=== PATIENT | female | born 1950 | race Caucasian/White ===

== ENCOUNTER 2016-07-18 10:15 | Emergency (ER) | payer MEDICARE, OTHER ==
--- NOTE | 2016-07-18 13:23 | ED ---
General Adult HPI - General Chief complaint: Anxiety Stated complaint: Anxiety Time Seen by Provider: 07/18/16 12:58 Source: patient, RN notes reviewed Mode of arrival: ambulatory Limitations: no limitations - History of Present Illness Initial comments: Patient is a 66-year-old female who presents emergency room today with chief complaint of increased anxiety. 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 Patient admits that she's had increased anxiety since the of her mother which is approximately a year ago. She states she just feels "overwhelmed". States she's never talked with therapist Rakesh about these feelings. States not part of the family doctor. Patient states she feels that her heart races at times. Denies any other complaints or symptoms. Patient denies any recent fever, chills, shortness of breath, chest pain, back pain, abdominal pain, nausea or vomiting, numbness or tingling, dysuria or hematuria, constipation or diarrhea, headaches or visual changes, or any other complaints. - Related Data Home Medications Medication Instructions Recorded Confirmed Famotidine [Pepcid] 20 mg PO DAILY 07/06/14 07/18/16 Hydrochlorothiazide [Hydrodiuril] 12.5 mg PO DAILY 07/06/14 07/18/16 Lisinopril [Prinivil] 5 mg PO DAILY 07/06/14 07/18/16 Multivitamins, Thera [Theragran] 1 tab PO DAILY 07/06/14 07/18/16 Fish Oil/Dha/Epa [Fish Oil 1,200 1 cap PO DAILY 07/18/16 07/18/16 mg Fish Oil] Allergies Allergy/AdvReac Type Severity Reaction Status Date / Time morphine AdvReac Nausea & Verified 07/18/16 12:27 Vomiting Review of Systems ROS Statement: Those systems with pertinent positive or pertinent negative responses have been documented in the HPI. ROS Other: All systems not noted in ROS Statement are negative. Past Medical History Past Medical History: GERD/Reflux, Hypertension Additional Past Medical History / Comment(s): ann carpal tunnel History of Any Multi-Drug Resistant Organisms: None Reported Past Surgical History: Adenoidectomy, Section, Cholecystectomy, Hysterectomy, Joint Replacement, Tonsillectomy Additional Past Surgical History / Comment(s): b\\l knee replacement. c-sect x 3 Past Anesthesia/Blood Transfusion Reactions: Postoperative Nausea & Vomiting ( PONV) Past Psychological History: Anxiety Smoking Status: Never smoker Past Alcohol Use History: None Reported Past Drug Use History: None Reported - Past Family History Sister(s) Family Medical History: Cancer Father Family Medical History: Cancer General Exam - General Exam Comments Initial Comments: General: The patient is awake and alert, in no distress, and does not appear acutely ill. Eye: Pupils are equal, round and reactive to light, extra-ocular movements are intact. No nystagmus. There is normal conjunctiva bilaterally. No signs of icterus. Ears, nose, mouth and throat: There are moist mucous membranes and no oral lesions. Neck: The neck is supple, there is no tenderness or JVD. Cardiovascular: There is a regular rate and rhythm. No murmur, rub or gallop is appreciated. Respiratory: Lungs are clear to auscultation, respirations are non-labored, breath sounds are equal. No wheezes, stridor, rales, or rhonchi. Gastrointestinal: Soft, non-distended, non-tender abdomen without masses or organomegaly noted. There is no rebound or guarding present. No CVA tenderness. Bowel sounds are unremarkable. Musculoskeletal: Normal ROM, no tenderness. Strength 5/5. Sensation intact. Pulses equal bilaterally 2+. Neurological: A&O x 3. CN II-XII intact, There are no obvious motor or sensory deficits. Coordination appears grossly intact. Speech is normal. Skin: Skin is warm and dry and no rashes or lesions are noted. Psychiatric: Cooperative, appropriate mood & affect, normal judgment. Limitations: no limitations Course Vital Signs 07/18/16 11:05 Temperature 97.9 F Pulse Rate 100 Respiratory 16 Rate Blood Pressure 132/82 O2 Sat by Pulse 96 Oximetry EKG Findings - EKG Comments: EKG Findings:: EKG performed at 1356: A 12-lead EKG was performed and interpreted by me as showing the following: Rate is 95, and rhythm is normal sinus. There are normal QRS complexes and normal R-wave progression. ST segments have no elevation or depression, and IL segments appear normal. Medical Decision Making - Medical Decision Making Patient examined here the emergency room by [email or web address]. The recommendation that patient can follow up outpatient. Patient given information. States understanding and is in agreement with this plan. - Lab Data Result diagrams: 07/18/16 13:40 07/18/16 13:40 Lab Results 07/18/16 07/18/16 07/18/16 Range/Units 13:40 13:40 14:39 WBC 9.3 (3.8-10.6) k/uL RBC 5.01 (3.80-5.40) m/uL Hgb 15.5 (11.4-16.0) gm/dL Hct 46.0 (34.0-46.0) % MCV 91.7 (80.0-100.0) fL MCH 30.9 (25.0-35.0) pg MCHC 33.7 (31.0-37.0) g/dL RDW 13.0 (11.5-15.5) % Plt Count 304 (150-450) k/uL Neutrophils % 66 % Lymphocytes % 27 % Monocytes % 4 % Eosinophils % 1 % Basophils % 0 % Neutrophils # 6.1 (1.3-7.7) k/uL Lymphocytes # 2.5 (1.0-4.8) k/uL Monocytes # 0.4 (0-1.0) k/uL Eosinophils # 0.1 (0-0.7) k/uL Basophils # 0.0 (0-0.2) k/uL Sodium 141 (137-145) mmol/L Potassium 4.2 (3.5-5.1) mmol/L Chloride 103 (98-107) mmol/L Carbon Dioxide 27 (22-30) mmol/L Anion Gap 11 mmol/L BUN 14 (7-17) mg/dL Creatinine 0.67 (0.52-1.04) mg/dL Est GFR (MDRD) Af Amer >60 (>60 ml/min/1.73 sqM) Est GFR (MDRD) Non-Af >60 (>60 ml/min/1.73 sqM) Glucose 100 H (74-99) mg/dL Calcium 10.1 (8.4-10.2) mg/dL Total Bilirubin 1.6 H (0.2-1.3) mg/dL AST 25 (14-36) U/L ALT 26 (9-52) U/L Alkaline Phosphatase 68 (38-126) U/L Total Protein 8.4 H (6.3-8.2) g/dL Albumin 4.7 (3.5-5.0) g/dL Urine Color Light Yellow Urine Appearance Clear (Clear) Urine pH 5.5 (5.0-8.0) Ur Specific [place] 1.006 (1.001-1.035) Urine Protein Negative (Negative) Urine Glucose (UA) Negative (Negative) Urine Ketones Trace H (Negative) Urine Blood Negative (Negative) Urine Nitrite Negative (Negative) Urine Bilirubin Negative (Negative) Urine Urobilinogen <2.0 (<2.0) mg/dL Ur Leukocyte Esterase Trace H (Negative) Urine WBC 3 (0-5) /hpf Ur Squamous Epith Cells 1 (0-4) /hpf Amorphous Sediment Rare H (None) /hpf Urine Mucus Rare H (None) /hpf Urine Opiates Screen Not Detected (NotDetected) Ur Oxycodone Screen Not Detected (NotDetected) Urine Methadone Screen Not Detected (NotDetected) Ur Propoxyphene Screen Not Detected (NotDetected) Ur Barbiturates Screen Not Detected (NotDetected) U Tricyclic Antidepress Not Detected (NotDetected) Ur Phencyclidine Scrn Not Detected (NotDetected) Ur Amphetamines Screen Not Detected (NotDetected) U Methamphetamines Scrn Not Detected (NotDetected) U Benzodiazepines Scrn Not Detected (NotDetected) Urine Cocaine Screen Not Detected (NotDetected) U Marijuana (THC) Screen Not Detected (NotDetected) Disposition Clinical Impression: Anxiety Disposition: HOME SELF-CARE Condition: Good Instructions: Generalized Anxiety Disorder (ED) Additional Instructions: Please follow up with family doctor and outpatient therapy as discussed. Please return to the ER if any symptoms increase or worsen or for any other concerns. Time of Disposition: 18:01
[2016-07-18 13:58] LABS: Basophils % (A) 0 %; CHCM 32.9; Eosinophils # (A) 0.1 k/uL (0-0.7); Eosinophils % (A) 1 %; HGB 15.5 gm/dL (11.4-16.0); Luc # (Auto) 0.21; Luc % (Auto) 2; Lymphocytes # (A) 2.5 k/uL (1.0-4.8); Lymphocytes % (A) 27 %; MCH 30.9 pg (25.0-35.0); MCHC 33.7 g/dL (31.0-37.0); MCV 91.7 fL (80.0-100.0); Mean Platelet Volume 6.8; Monocytes # (A) 0.4 k/uL (0-1.0); Monocytes % (A) 4 %; Neutrophils # (A) 6.1 k/uL (1.3-7.7); Neutrophils % (A) 66 %; RBC 5.01 m/uL (3.80-5.40); WBC 9.3 k/uL (3.8-10.6); WBC (Perox) 9.26
[2016-07-18 14:13] LABS: ALT 26 U/L (9-52); AST 25 U/L (14-36); Alkaline Phosphatase 68 U/L (38-126); Anion Gap 11 mmol/L; Blood Urea Nitrogen 14 mg/dL (7-17); Calcium 10.1 mg/dL (8.4-10.2); Carbon Dioxide 27 mmol/L (22-30); Chloride 103 mmol/L (98-107); Glucose 100 mg/dL (74-99); Non-African American GFR(MDRD) >60 (>60 ml/min/1.73 sqM); Potassium 4.2 mmol/L (3.5-5.1); Sodium 141 mmol/L (137-145); Total Bilirubin 1.6 mg/dL (0.2-1.3); Total Protein 8.4 g/dL (6.3-8.2)
[2016-07-18 14:56] LABS: Amorphous Sediment,Urine Rare /hpf; Appearance,Urine Clear (Clear); Bilirubin,Urine Negative (Negative); Glucose,Urine (UA) Negative (Negative); Ketones,Urine Trace (Negative); Leukocyte Esterase,Urine Trace (Negative); Mucus,Urine Rare /hpf; Nitrite,Urine Negative (Negative); PH, Urine 5.5 (5.0-8.0); Particle Count 845; Protein,Urine Negative (Negative); Specific Gravity,Urine 1.006 (1.001-1.035); Squamous Epithelial Cell,Urine 1 /hpf (0-4); UA Billing (MACRO vs. MICRO) MICRO; Urobilinogen,Urine <2.0 mg/dL (<2.0); WBC,Urine 3 /hpf (0-5)
[2016-07-18 18:15] VITALS: BP 147/87; PULSE 107; RESP 18; TEMP 98.2
== END 2016-07-18 18:15 | disposition home or self-care (01) ==
LOC: EC 10:15
DX: F41.9 Anxiety disorder, unspecified (principal); I10 Essential (primary) hypertension; K21.9 Gastro-esophageal reflux disease without esophagitis; Z96.653 Presence of artificial knee joint, bilateral; Z79.899 Other long term (current) drug therapy; Z88.5 Allergy status to narcotic agent
CPT/HCPCS: 36415; 80053; 80306; 81001; 85025; 87086; 93005; 99284

== ENCOUNTER 2021-04-28 23:54 | Emergency (ER) | payer MEDICARE, OTHER ==
[2021-04-29 01:22] LABS: Appearance,Urine Cloudy (Clear); Bacteria,Urine Rare /hpf; Bilirubin,Urine Negative (Negative); Blood,Urine Large (Negative); Calcium Oxalate Crystals,Urine Occasional /hpf; Color,Urine Yellow; Glucose,Urine (UA) Negative (Negative); Hyaline Casts,Urine 13 /lpf (0-2); Ketones,Urine Trace (Negative); Leukocyte Esterase,Urine Moderate (Negative); Mucus,Urine Few /hpf; Nitrite,Urine Negative (Negative); PH, Urine 5.5 (5.0-8.0); Protein,Urine 1+ (Negative); RBC,Urine 64 /hpf (0-5); Squamous Epithelial Cell,Urine 2 /hpf (0-4); WBC,Urine 28 /hpf (0-5)
--- NOTE | 2021-04-29 03:30 | CT ---
EXAM: CT Lumbar Spine Without Intravenous Contrast CLINICAL HISTORY: ITS.REASON CT Reason: back pain TECHNIQUE: Axial computed tomography images of the lumbar spine without intravenous contrast. CTDI is 82.684 mGy and DLP is 2974.4 mGy-cm. This CT exam was performed using one or more of the following dose reduction techniques: automated exposure control, adjustment of the mA and/or kV according to patient size, and/or use of iterative reconstruction technique. COMPARISON: No relevant prior studies available. FINDINGS: Moderate bilateral sacroiliac joint arthropathy. Vertebrae: There is a chronic lytic spondylolisthesis of L5-S1. No acute fracture. Discs/spinal canal/neural foramina: There is a moderately severe bilateral L5-S1 neuroforaminal stenosis with impingement of the L5 neural roots and ganglia. There is moderate disc degeneration at L2-3 and advanced disc degeneration at L5-S1. No acute findings. No spinal canal stenosis. Soft tissues: Unremarkable. IMPRESSION: No evidence of acute lumbar spine pathology. Chronic lytic spondylolisthesis of L5 on S1 with moderately severe bilateral neuroforaminal stenosis with impingement of the L5 nerve roots and ganglia. Moderate bilateral sacroiliac joint arthropathy.
[2021-04-29] MEDS ORDERED: SULFAMETHOX-TMP 800-160MG 1 EACH TAB PO STA (03:45)
--- NOTE | 2021-04-29 03:48 | ED ---
General Adult HPI - General Chief complaint: Abdominal Pain Stated complaint: LT flank pain, back pain Time Seen by Provider: 04/29/21 00:36 Source: patient Mode of arrival: wheelchair - History of Present Illness Initial comments: This patient is 70-year-old woman who presents with back pain that appears to have 2 components. There is a long-standing chronic back pain issue on the left lumbar. There is a component of flank pain going on for the past couple of days. Patient denies loss of bladder or bowel function. No saddle anesthesia. No weakness or numbness of the extremities. Onset/Timin -: days(s) Location: back, left Radiation: flank Quality: aching Consistency: constant Improves with: none Worsens with: none Associated Symptoms: denies other symptoms Treatments Prior to Arrival: none - Related Data Home Medications Medication Instructions Recorded Confirmed Famotidine [Pepcid] 20 mg PO DAILY 07/06/14 07/18/16 Lisinopril [Prinivil] 5 mg PO DAILY 07/06/14 07/18/16 Multivitamins, Thera [Theragran] 1 tab PO DAILY 07/06/14 07/18/16 hydroCHLOROthiazide [Hydrodiuril] 12.5 mg PO DAILY 07/06/14 07/18/16 Fish Oil/Dha/Epa [Fish Oil 1,200 1 cap PO DAILY 07/18/16 07/18/16 mg Fish Oil] Previous Rx's Medication Instructions Recorded Sulfamethox-Tmp 800-160Mg [Bactrim 1 each PO Q12HR #6 tab 04/29/21 Ds] traMADol HCl [Ultram] 50 mg PO Q6H PRN #20 tab 04/29/21 Allergies Allergy/AdvReac Type Severity Reaction Status Date / Time morphine AdvReac Nausea & Verified 04/29/21 00:00 Vomiting Review of Systems ROS Statement: Those systems with pertinent positive or pertinent negative responses have been documented in the HPI. ROS Other: All systems not noted in ROS Statement are negative. Constitutional: Denies: fever, chills Respiratory: Denies: cough, dyspnea Cardiovascular: Denies: chest pain, palpitations Gastrointestinal: Denies: abdominal pain, vomiting, diarrhea, constipation Genitourinary: Reports: frequency. Denies: dysuria, hematuria Musculoskeletal: Reports: as per HPI, back pain Skin: Denies: rash Neurological: Denies: headache, weakness Past Medical History Past Medical History: GERD/Reflux, Hypertension Additional Past Medical History / Comment(s): ann carpal tunnel History of Any Multi-Drug Resistant Organisms: None Reported Past Surgical History: Adenoidectomy, Section, Cholecystectomy, Hysterectomy, Joint Replacement, Tonsillectomy Additional Past Surgical History / Comment(s): b\l knee replacement. c-sect x 3 Past Anesthesia/Blood Transfusion Reactions: Postoperative Nausea & Vomiting (PONV) Past Psychological History: Anxiety Smoking Status: Never smoker Past Alcohol Use History: None Reported Past Drug Use History: None Reported - Past Family History Sister(s) Family Medical History: Cancer Father Family Medical History: Cancer General Exam General appearance: alert, in no apparent distress Head exam: Present: atraumatic, normocephalic Eye exam: Present: normal appearance. Absent: scleral icterus, conjunctival injection Neck exam: Present: normal inspection Respiratory exam: Present: normal lung sounds bilaterally. Absent: respiratory distress, wheezes, rales, rhonchi, stridor Cardiovascular Exam: Present: regular rate, normal rhythm, normal heart sounds. Absent: systolic murmur, diastolic murmur, rubs, gallop GI/Abdominal exam: Present: soft. Absent: distended, tenderness, guarding, rebound, rigid, mass Extremities exam: Present: normal inspection, normal capillary refill. Absent: pedal edema, calf tenderness Back exam: Present: normal inspection. Absent: CVA tenderness (R), CVA tenderness (L) Neurological exam: Present: alert Skin exam: Present: warm, dry, intact, normal color. Absent: rash Course Vital Signs 04/28/21 04/29/21 23:57 04:15 Temperature 97.9 F 97.6 F Pulse Rate 119 H 78 Respiratory 23 18 Rate Blood Pressure 189/88 181/100 O2 Sat by Pulse 98 96 Oximetry Medical Decision Making - Medical Decision Making Patient is 70-year-old woman with some chronic back pain and then superimposed urinary tract infection. Discussed appropriate further care and follow-up, course of antibiotics, return parameters. - Lab Data Lab Results 04/29/21 Range/Units 00:49 Urine Color Yellow Urine Appearance Cloudy H (Clear) Urine pH 5.5 (5.0-8.0) Ur Specific [place] 1.040 H (1.001-1.035) Urine Protein 1+ H (Negative) Urine Glucose (UA) Negative (Negative) Urine Ketones Trace H (Negative) Urine Blood Large H (Negative) Urine Nitrite Negative (Negative) Urine Bilirubin Negative (Negative) Urine Urobilinogen 2.0 (<2.0) mg/dL Ur Leukocyte Esterase Moderate H (Negative) Urine RBC 64 H (0-5) /hpf Urine WBC 28 H (0-5) /hpf Urine WBC Clumps Rare H (None) /hpf Ur Squamous Epith Cells 2 (0-4) /hpf Calcium Oxalate Crystal Occasional H (None) /hpf Urine Bacteria Rare H (None) /hpf Hyaline Casts 13 H (0-2) /lpf Urine Mucus Few H (None) /hpf Disposition Clinical Impression: Back pain, Urinary tract infection Disposition: HOME SELF-CARE Condition: Good Prescriptions: Sulfamethox-Tmp 800-160Mg [Bactrim Ds] 1 each PO Q12HR #6 tab traMADol HCl [Ultram] 50 mg PO Q6H PRN #20 tab PRN Reason: Pain Is patient prescribed a controlled substance at d/c from ED?: Yes When asked, does pt state using other controlled substances?: No If prescribed controlled substance>3 days was MAPS reviewed?: Prescribed <3 Days If opioid is for acute pain is fill amount 7 days or less?: Yes If Rx opioid, was Start Talking consent form obtained?: Yes Referrals: Pita Jc MD [Primary Care Provider] - 1-2 days Kary Moseley DO [Doctor of Osteopathic Medicine] - 1-2 days
[2021-04-29 05:16] VITALS: BP 181/100; PULSE 78; RESP 18; TEMP 97.6
== END 2021-04-29 04:15 | disposition home or self-care (01) ==
LOC: EC 23:54
DX: N39.0 Urinary tract infection, site not specified (principal); M54.9 Dorsalgia, unspecified; I10 Essential (primary) hypertension; K21.9 Gastro-esophageal reflux disease without esophagitis; Z79.899 Other long term (current) drug therapy; Z88.5 Allergy status to narcotic agent
CPT/HCPCS: 72131; 81001; 99284

== ENCOUNTER 2023-03-23 18:10 | Inpatient (IN) | payer MEDICARE, OTHER ==
[2023-03-23] MEDS ORDERED: KETOROLAC 15 MG/ML 1 ML VIAL IVP STA (18:26)
--- NOTE | 2023-03-23 18:48 | ED ---
General Adult HPI - General Chief complaint: Back Pain/Injury Stated complaint: Back Pain Time Seen by Provider: 03/23/23 18:13 Source: patient, RN notes reviewed, old records reviewed Mode of arrival: EMS Limitations: no limitations - History of Present Illness Initial comments: 72-year-old female with acute on chronic low back pain. Patient has chronic low back pain and walks with a walker. She had a minor fall approximately one week ago which has worsened her normal back pain. She states she does have pain radiating into her right leg. Patient denies vomiting. Denies head or neck trauma with the fall. Denies any specific injury with the fall but does report worsening pain. - Related Data Home Medications Medication Instructions Recorded Confirmed Lisinopril [Prinivil] 5 mg PO DAILY 07/06/14 03/23/23 hydroCHLOROthiazide [Hydrodiuril] 12.5 mg PO DAILY 07/06/14 03/23/23 Diclofenac Sodium [Voltaren] 50 mg PO BID 03/23/23 03/23/23 Pantoprazole Sodium [Protonix] 40 mg PO DAILY 03/23/23 03/23/23 Allergies Allergy/AdvReac Type Severity Reaction Status Date / Time morphine AdvReac Nausea & Verified 03/23/23 21:07 Vomiting Review of Systems ROS Statement: Those systems with pertinent positive or pertinent negative responses have been documented in the HPI. ROS Other: All systems not noted in ROS Statement are negative. Past Medical History Past Medical History: GERD/Reflux, Hypertension Additional Past Medical History / Comment(s): ann carpal tunnel, chronic back pain. History of Any Multi-Drug Resistant Organisms: None Reported Past Surgical History: Adenoidectomy, Section, Cholecystectomy, Hysterectomy, Joint Replacement, Tonsillectomy Additional Past Surgical History / Comment(s): b\l knee replacement. c-sect x 3 Past Anesthesia/Blood Transfusion Reactions: Postoperative Nausea & Vomiting (PONV) Past Psychological History: Anxiety Smoking Status: Never smoker Past Alcohol Use History: None Reported Past Drug Use History: None Reported - Past Family History Sister(s) Family Medical History: Cancer Father Family Medical History: Cancer General Exam Limitations: no limitations General appearance: alert, in no apparent distress Head exam: Present: atraumatic, normocephalic Eye exam: Present: normal appearance, PERRL Neck exam: Present: normal inspection Respiratory exam: Present: normal lung sounds bilaterally. Absent: respiratory distress Cardiovascular Exam: Present: regular rate, normal rhythm GI/Abdominal exam: Present: soft. Absent: distended, tenderness Extremities exam: Present: normal inspection. Absent: pedal edema, joint swelling Back exam: Present: paraspinal tenderness, vertebral tenderness Neurological exam: Present: alert, oriented X3, CN II-XII intact Skin exam: Present: warm, dry, intact Course Vital Signs 03/23/23 03/23/23 18:13 19:40 Temperature 98.3 F Pulse Rate 115 H 100 Respiratory 20 18 Rate Blood Pressure 146/96 121/73 O2 Sat by Pulse 94 L 95 Oximetry Medical Decision Making - Medical Decision Making Was pt. sent in by a medical professional or institution (, PA, FUEL MANAGEMENT HANDLER, urgent care, hospital, or snf...) When possible be specific @ -No Did you speak to anyone other than the patient for history (EMS, parent, family, police, friend...)? What history was obtained from this source @ -No Did you review nursing and triage notes (agree or disagree)? Why? @ -I reviewed and agree with nursing and triage notes Were old charts reviewed (outside hosp., previous admission, EMS record, old EKG, old radiological studies, urgent care reports/EKG's, snf records)? Report findings @ -No old charts were reviewed Differential Diagnosis (chest pain, altered mental status, abdominal pain women, abdominal pain men, vaginal bleeding, weakness, fever, dyspnea, syncope, headache, dizziness, GI bleed, back pain, seizure, CVA, palpatations, mental health, musculoskeletal)? @ -not applicable EKG interpreted by me (3pts min.). @ -As above X-rays interpreted by me (1pt min.). @X-ray of the lumbosacral spine performed, showing degenerative change without significant change compared to computed tomography scan in 2021. No acute fracture. CT interpreted by me (1pt min.). @ -None done U/S interpreted by me (1pt. min.). @ -None done What testing was considered but not performed or refused? (CT, X-rays, U/S, labs)? Why? @ -None What meds were considered but not given or refused? Why? @ -None Did you discuss the management of the patient with other professionals (professionals i.e. , PA, FUEL MANAGEMENT HANDLER, lab, RT, psych nurse, social work specialist, foot setter, teacher, contracts officer, case management manager)? Give summary @ -No Was smoking cessation discussed for >3mins.? @ -No Was critical care preformed (if so, how long)? @ -No Were there social determinants of health that impacted care today? How? (Homelessness, low income, unemployed, alcoholism, drug addiction, transportation, low edu. Level, literacy, decrease access to med. care, care home, rehab)? @ -No Was there de-escalation of care discussed even if they declined (Discuss DNR or withdrawal of care, Hospice)? DNR status @ -No What co-morbidities impacted this encounter? (DM, HTN, Smoking, COPD, CAD, Cancer, CVA, ARF, Chemo, Hep., AIDS, mental health diagnosis, sleep apnea, morbid obesity)? @ -None Was patient admitted / discharged? Hospital course, mention meds given and route, prescriptions, significant lab abnormalities, going to OR and other pertinent info. @72-year-old female with history of instability, chronic low back pain, worsening difficulty managing at home alone. X-rays are stable from prior. Patient currently lives alone and there is concern about her ability to remain alone due to difficulty ambulating and gait instability. She may benefit from physical therapy assessment and possible placement for rehabilitation. Undiagnosed new problem with uncertain prognosis? @ -No Drug Therapy requiring intensive monitoring for toxicity (Heparin, Nitro, Insulin, Cardizem)? @ -No Were any procedures done? @ -No Diagnosis/symptom? @ -Gait Instability, chronic pain Acute, or Chronic, or Acute on Chronic? @Acute on chronic Uncomplicated (without systemic symptoms) or Complicated (systemic symptoms)? @ -default Side effects of treatment? @ -No Exacerbation, Progression, or Severe Exacerbation? @ -No Poses a threat to life or bodily function? How? (Chest pain, [place], [place], pneumonia, PE, COPD, DKA, ARF, appy, cholecystitis, CVA, Diverticulitis, Homicidal, Suicidal, threat to staff... and all critical care pts) @ -Low risk at this time Disposition Clinical Impression: Lumbar radiculopathy, Gait instability, Difficulty in walking Disposition: ADMITTED IP TO THIS HOSP Condition: Stable Is patient prescribed a controlled substance at d/c from ED?: No Referrals: Demetrio Tenorio MD [Primary Care Provider] - 1-2 days Time of Disposition: 22:16
--- NOTE | 2023-03-23 19:19 | XR ---
EXAMINATION TYPE: XR lumbosacral spine min 4V DATE OF EXAM: 03/23/2023 6:53 PM CLINICAL INDICATION:Female, 72 years old with history of fall; H COMPARISON: CT lumbar spine 04/29/2021 TECHNIQUE: XR lumbosacral spine min 4V - frontal, lateral, bilateral oblique, coned-down lateral lumb osacral junction views. FINDINGS: Multilevel mild/moderate degenerative disc disease with severe degenerative disc disease L5-S1, under lying bilateral L5 pars defects and grade 2 anterolisthesis L5 on S1, similar to the prior. No eviden ce of acute compression fracture or traumatic malalignment. Mild/moderate facet arthropathy throughou t. Mild/moderate degenerative changes of the SI joints. Visualized pelvis appears intact. Clips in the right upper quadrant likely from cholecystectomy. Visualized bowel gas pattern is unrema rkable. IMPRESSION: 1. No radiographic evidence of acute lumbar compression fracture. 2. Multilevel degenerative disc disease, greatest at L5-S1 with bilateral L5 pars defects and grade 2 anterolisthesis L5 on S1, similar to previous.
[2023-03-23] MEDS ORDERED: NALOXONE 0.4 MG/ML 1 ML VIAL IV PRN (22:11)
[2023-03-23] MEDS ORDERED: HYDROcodone/APAP 5-325MG 1 EACH TAB PO PRN (22:11)
[2023-03-23 22:27] LABS: Basophils % (A) 0 %; Eosinophils # (A) 0.2 k/uL (0-0.7); Eosinophils % (A) 2 %; HCT 40.6 % (34.0-46.0); HGB 13.7 gm/dL (11.4-16.0); Lymphocytes # (A) 3.3 k/uL (1.0-4.8); Lymphocytes % (A) 36 %; MCH 31.1 pg (25.0-35.0); MCHC 33.7 g/dL (31.0-37.0); MCV 92.2 fL (80.0-100.0); Mean Platelet Volume 7.8; Monocytes # (A) 0.5 k/uL (0-1.0); Monocytes % (A) 6 %; Neutrophils # (A) 4.9 k/uL (1.3-7.7); Neutrophils % (A) 54 %; Platelet Count 298 k/uL (150-450); RDW 13.5 % (11.5-15.5); WBC 9.1 k/uL (3.8-10.6)
[2023-03-23 22:47] LABS: ALT 38 U/L (4-34); AST 37 U/L (14-36); African American GFR (CKD) >90 (>60 ml/min/1.73 sqM); Albumin 4.3 g/dL (3.5-5.0); Alkaline Phosphatase 87 U/L (38-126); Anion Gap 11 mmol/L; Blood Urea Nitrogen 16 mg/dL (7-17); Calcium 9.4 mg/dL (8.4-10.2); Carbon Dioxide 24 mmol/L (22-30); Chloride 99 mmol/L (98-107); Glucose 103 mg/dL (74-99); Non-African American GFR(CKD) 88 (>60 ml/min/1.73 sqM); Potassium 3.4 mmol/L (3.5-5.1); Sodium 134 mmol/L (137-145); Total Bilirubin 1.6 mg/dL (0.2-1.3); Total Protein 7.2 g/dL (6.3-8.2)
[2023-03-23] MEDS: KETOROLAC 15 MG/ML 1 ML VIAL IVP SCH (22:59)
[2023-03-24 05:21] LABS: Appearance,Urine Clear (Clear); Bilirubin,Urine Negative (Negative); Blood,Urine Trace (Negative); Color,Urine Light Yellow; Glucose,Urine (UA) Negative (Negative); Ketones,Urine Negative (Negative); Leukocyte Esterase,Urine Negative (Negative); Nitrite,Urine Negative (Negative); PH, Urine 5.5 (5.0-8.0); Protein,Urine Negative (Negative); RBC,Urine <1 /hpf (0-5); Specific Gravity,Urine 1.015 (1.001-1.035); Squamous Epithelial Cell,Urine <1 /hpf (0-4); Urobilinogen,Urine <2.0 mg/dL (<2.0); WBC,Urine <1 /hpf (0-5)
[2023-03-24] MEDS: KETOROLAC 15 MG/ML 1 ML VIAL IVP SCH ×3 (06:31→17:10)
[2023-03-24] MEDS: MAGNESIUM SULFATE-D5W PMX 1 GM in DEXTROSE/WATER 1 100ML.BAG IVPB SCH (15:03)
[2023-03-24] MEDS: PANTOPRAZOLE 40 MG TABLET PO SCH (15:04)
[2023-03-24] MEDS: HEPARIN SODIUM,PORCINE 5,000 UNIT/ML 1 ML VIAL SQ SCH (17:16)
[2023-03-24 19:54] LABS: ALT 35 U/L (8-44); AST 29 U/L (13-35); Albumin 4.1 g/dL (3.8-4.9); Albumin/Globulin Ratio 1.86 Ratio (1.60-3.17); Alkaline Phosphatase 80 U/L (41-126); BUN/Creat Ratio 15.67 Ratio (12.00-20.00); Blood Urea Nitrogen 14.1 mg/dL (9.0-27.0); Calcium 9.6 mg/dL (8.7-10.3); Carbon Dioxide 24.5 mmol/L (21.6-31.8); Chloride 99 mmol/L (96-109); Globulin 2.2 g/dL (1.6-3.3); Glucose 120 mg/dL (70-110); Potassium 3.7 mmol/L (3.5-5.5); Sodium 136 mmol/L (135-145); Total Bilirubin 1.5 mg/dL (0.3-1.2); Total Protein 6.3 g/dL (6.2-8.2)
[2023-03-25] MEDS: KETOROLAC 15 MG/ML 1 ML VIAL IVP SCH ×4 (00:50→17:15)
[2023-03-25] MEDS: HEPARIN SODIUM,PORCINE 5,000 UNIT/ML 1 ML VIAL SQ SCH ×3 (00:50→17:16)
[2023-03-25] MEDS ORDERED: ACETAMINOPHEN TAB 500 MG TAB PO PRN (00:57)
--- NOTE | 2023-03-25 01:00 | P.HPIM ---
History of Present Illness H&P Date: 03/24/23 Chief Complaint: Back pain Patient is a 73-year-old female with a past medical history of chronic low back pain, hypertension, GERD, anxiety and prior history of bilateral knee replacement presents to ER with complaints of low back pain and unable to ambulate. Patient usually walks with a walker. She has been having symptoms for the past 1 week after minor fall. She is currently living at [facility]. Patient was complaining of pain radiating down to her right lower extremity/leg. Denies any numbness or tingling. No bowel or bladder incontinence. Denies any head injury. No fever no chills. No cough or sputum production. No chest pain or shortness of breath. X-ray of the lumbar spine showed no radiographic evidence of acute lumbar compression fracture. Multilevel degenerative disc disease greatest at L5-S1 with bilateral L5 pars defects and grade 2 anterolisthesis L5-S1 similar to previous. Laboratory data showed sodium 134 potassium 3.4 chloride 99 bicarb is 24 BUN 16 and creatinine 0.67, blood sugar 103, bilirubin level 1.6 AST 37 ALT 38 and alk phos 87 and urinalysis is negative. Influenza A, B, RSV and COVID-19 PCR not detected. WBC 9.1 hemoglobin 13.7 platelets 298 Review of Systems Constitutional: Patient denies any fever or chills . no Generalized weakness. Abdomen: Patient denied any nausea or vomiting or abd. pain Cardiovascular: Patient denies any chest pain or short of breath no palpitations. Respiratory: patient denied any cough . no sputum production. No shortness of breath Neurologic: Patient denied any numbness or tingling or headache. Musculoskeletal: Patient denies any complaints of joint swelling or deformity. Low back pain. Skin: Negative Psychiatric: Negative Endocrine: No heat or cold intolerance. No recent weight gain. Genitourinary: No dysuria or hematuria. All other 14 point ROS negative except the above Past Medical History Past Medical History: GERD/Reflux, Hypertension Additional Past Medical History / Comment(s): ann carpal tunnel, chronic back pain. History of Any Multi-Drug Resistant Organisms: None Reported Past Surgical History: Adenoidectomy, Section, Cholecystectomy, Hysterectomy, Joint Replacement, Tonsillectomy Additional Past Surgical History / Comment(s): b\l knee replacement. c-sect x 3 Past Anesthesia/Blood Transfusion Reactions: Postoperative Nausea & Vomiting (PONV) Past Psychological History: Anxiety Smoking Status: Never smoker Past Alcohol Use History: None Reported Past Drug Use History: None Reported - Past Family History Sister(s) Family Medical History: Cancer Father Family Medical History: Cancer Medications and Allergies Home Medications Medication Instructions Recorded Confirmed Type Lisinopril [Prinivil] 5 mg PO DAILY 07/06/14 03/23/23 History hydroCHLOROthiazide [Hydrodiuril] 12.5 mg PO DAILY 07/06/14 03/23/23 History Diclofenac Sodium [Voltaren] 50 mg PO BID 03/23/23 03/23/23 History Pantoprazole Sodium [Protonix] 40 mg PO DAILY 03/23/23 03/23/23 History Allergies Allergy/AdvReac Type Severity Reaction Status Date / Time morphine AdvReac Nausea & Verified 03/23/23 21:07 Vomiting Physical Exam Vitals: Vital Signs Temp Pulse Pulse Resp BP BP Pulse Ox 03/24/23 12:02 97.9 F 95 18 114/74 94 L 03/24/23 07:13 97.5 F L 82 18 119/74 97 03/24/23 02:00 97.6 F 85 19 126/76 96 03/23/23 22:21 90 18 154/90 96 03/23/23 19:40 100 18 121/73 95 03/23/23 18:25 97.6 F 85 19 126/76 96 03/23/23 18:13 98.3 F 115 H 20 146/96 94 L Intake and Output 03/23/23 03/24/23 03/24/23 22:59 06:59 14:59 Intake Total 590 Balance 590 Intake: Oral 590 Other: Voiding Method External Catheter # Voids 1 1 Weight 136.985 kg 136.985 kg PHYSICAL EXAMINATION: Patient is lying in the bed comfortably, no acute distress, awake alert and oriented. Morbidly obese. HEENT: Normocephalic. Neck is supple. Pupils reactive. Nostrils clear. Oral cavity is moist. Neck reveals no JVD, carotid bruits, or thyromegaly. CHEST EXAMINATION: Trachea is central. Symmetrical expansion. Lung villalpando clear to auscultation and percussion. CARDIAC: Normal S1, S2 with no gallops. No murmurs ABDOMEN: Soft. Bowel sounds present. Nontender. No organomegaly. No abdominal bruits. Extremities: reveal no edema. No clubbing or cyanosis Neurologically awake, alert, oriented x3. Patient is able to move all extremities while in bed. No gross focal deficits noted Skin: No rash or skin lesions. Psychiatric: Coperative. Nonsuicidal, Musculoskeletal: No joint swelling or deformity. Results CBC & Chem 7: 03/23/23 22:19 03/24/23 14:24 Labs: Abnormal Lab Results - Last 24 Hours (Table) 03/23/23 03/24/23 Range/Units 22:19 04:45 Sodium 134 L (137-145) mmol/L Potassium 3.4 L (3.5-5.1) mmol/L Glucose 103 H (74-99) mg/dL Total Bilirubin 1.6 H (0.2-1.3) mg/dL AST 37 H (14-36) U/L ALT 38 H (4-34) U/L Urine Blood Trace H (Negative) Thrombosis Risk Factor Assmnt - DVT/VTE Prophylaxis DVT/VTE Prophylaxis: Pharmacologic Prophylaxis ordered - Choose All That Apply Any of the Below Risk Factors Present?: Yes Each Factor Represents 1 point: Obesity (BMI >25) Each Risk Factor Represents 2 Points: Age 61-74 years Other congenital or acquired thrombophilia - If yes, enter type in comment: No Thrombosis Risk Factor Assessment Total Risk Factor Score: 3 Thrombosis Risk Factor Assessment Level: Moderate Risk Assessment and Plan Assessment: Acute on chronic low back pain status post fall. Multilevel degenerative disc disease greatest at L5-S1 with bilateral L5 pars defects and grade 2 anterolisthesis L5-S1 similar to previous study. Hypokalemia Hypovolemic hyponatremia Mild transaminitis Hypertension GERD Morbid obesity BMI 51.8 Anxiety Prior history of bilateral knee replacement GI and DVT prophylaxis with heparin subcu and PPI Plan: Patient will be continued on pain management with Toradol and Tylenol as needed. Blood pressure medications on hold. Follow-up TSH, vitamin D levels. PT OT will be consulted. Patient may need rehab transfer. Continue to follow closely.
[2023-03-25 08:26] LABS: Basophils # (A) 0.03 X 10*3/uL (0.00-0.10); Basophils % (A) 0.4 %; Eosinophils # (A) 0.25 X 10*3/uL (0.04-0.35); Eosinophils % (A) 2.9 %; HCT 42.1 % (37.2-46.3); HGB 13.8 g/dL (12.0-15.0); Lymphocytes # (A) 3.24 X 10*3/uL (0.90-5.00); Lymphocytes % (A) 38.2 %; MCH 30.1 pg (27.0-32.0); MCHC 32.8 g/dL (32.0-37.0); MCV 91.7 FL (80.0-97.0); Monocytes # (A) 0.69 X 10*3/uL (0.20-1.00); Monocytes % (A) 8.1 %; NRBC Per 100 WBC 0 X 10*3/uL (0.00-0.01); Neutrophils # (A) 4.24 X 10*3/uL (1.80-7.70); Neutrophils % (A) 49.9 %; Platelet Count 309 X 10*3/uL (140-440); RBC 4.59 X 10*6/uL (4.10-5.20); RDW 13.6 % (11.5-14.5); WBC 8.49 X 10*3/uL (4.50-10.00)
[2023-03-25] MEDS: PANTOPRAZOLE 40 MG TABLET PO SCH (08:53)
[2023-03-25 09:23] LABS: BUN/Creat Ratio 18.89 Ratio (12.00-20.00); Calcium 9.6 mg/dL (8.7-10.3); Carbon Dioxide 23.5 mmol/L (21.6-31.8); Chloride 101 mmol/L (96-109); Glucose 113 mg/dL (70-110); Potassium 4.3 mmol/L (3.5-5.5); Sodium 138 mmol/L (135-145)
[2023-03-26] MEDS: KETOROLAC 15 MG/ML 1 ML VIAL IVP SCH ×5 (00:18→23:19)
[2023-03-26] MEDS: HEPARIN SODIUM,PORCINE 5,000 UNIT/ML 1 ML VIAL SQ SCH ×4 (00:18→23:20)
--- NOTE | 2023-03-26 05:45 | P.PN ---
Subjective Progress Note Date: 03/25/23 Patient is a 73-year-old female with a past medical history of chronic low back pain, hypertension, GERD, anxiety and prior history of bilateral knee replacement presents to ER with complaints of low back pain and unable to ambulate. Patient usually walks with a walker. She has been having symptoms fo r the past 1 week after minor fall. She is currently living at [facility]. Patient was complaining of pain radiating down to her right lower extremity/leg. Denies any numbness or tingling. No bowel or bladder incontinence. Denies any head injury. No fever no chills. No cough or sputum production. No chest pain or shortness of breath. X-ray of the lumbar spine showed no radiographic evidence of acute lumbar compression fracture. Multilevel degenerative disc disease greatest at L5-S1 with bilateral L5 pars defects and grade 2 anterolisthesis L5-S1 similar to previous. Laboratory data showed sodium 134 potassium 3.4 chloride 99 bicarb is 24 BUN 16 and creatinine 0.67, blood sugar 103, bilirubin level 1.6 AST 37 ALT 38 and alk phos 87 and urinalysis is negative. Influenza A, B, RSV and COVID-19 PCR not detected. WBC 9.1 hemoglobin 13.7 platelets 298 03/25/2023 Patient is seen and evaluated and follow-up continues to have lower back pain and difficulty with walking. Prior to admission patient was ambulatory and currently living alone and has been having recurrent falls with progressive weakness to the lower extremities. Imaging done of the lumbar spine with no evidence of fractures or dislocation. Patient does have significant degenerative disc disease and morbid obesity with a body mass index of 51.8. Patient being evaluated by physical therapy recommending rehab. Patient would benefit from aggressive PT/OT therapy at an [facility] for strength and mobility as patient was independent prior to these falls. Patient currently afebrile with no reports of chest pain or shortness of breath. Patient reports the tolerating diet and denies any nausea or vomiting Review of systems: Constitutional: No reports of fatigue, fever, or chills Cardiovascular: No reports of chest pain or palpitations Respiratory: No reports of shortness of breath or cough GI: No reports of nausea, vomiting, or diarrhea : No reports of dysuria or retention Neurovascular: reports of generalized weakness and difficulty ambulating All medications have been reviewed PHYSICAL EXAMINATION: Patient is sitting up in the chair, no acute distress, awake alert and oriented. Morbidly obese. HEENT: Normocephalic. Neck is supple. Pupils reactive. Nostrils clear. Oral cavity is moist. Neck reveals no JVD, carotid bruits, or thyromegaly. CHEST EXAMINATION: Trachea is central. Symmetrical expansion. Lung villalpando clear to auscultation and percussion. CARDIAC: Normal S1, S2 with no gallops. No murmurs ABDOMEN: Soft. Bowel sounds present. Nontender. No organomegaly. No abdominal bruits. Extremities: reveal no edema. No clubbing or cyanosis Neurologically awake, alert, oriented x3. Patient is able to move all extremities while in bed. No gross focal deficits noted Skin: No rash or skin lesions. Psychiatric: Cooperative. Non-suicidal, Musculoskeletal: No joint swelling or deformity. Diffusely weak Assessment: Acute on chronic low back pain status post fall. Frequent falls over the last month with progressive weakness Multilevel degenerative disc disease greatest at L5-S1 with bilateral L5 pars defects and grade 2 anterolisthesis L5-S1 similar to previous study. Hypokalemia, being replaced Hypovolemic hyponatremia Mild transaminitis Hypertension GERD Morbid obesity BMI 51.8 Anxiety Prior history of bilateral knee replacement GI and DVT prophylaxis with heparin subcu and PPI Full code Plan: Patient will be continued on pain management with Toradol and Tylenol as needed. Blood pressure medications on hold. As patient was currently hypotensive and will monitor closely and resume medications as appropriate PT/OT therapy evaluated the patient recommending rehab and patient is agreeable. Case management following working on insurance authorization as well as ECF According to Medicare guidelines, patient will require 3 nights hospitalization prior to discharge to ECF Will follow-up on repeat labs as a.m. labs are pending Encouraged increased activity as tolerated and recommended working with physical therapy daily Patient would benefit from ECF for more aggressive PT/OT therapy as patient has been having recurrent falls with progressive weakness of the lower extremities and was independent prior to these falls. Patient lives alone currently and feels is not a safe discharge to home. Strongly recommend ECF at this time. The impression and plan of care has been dictated by Stefanie Mclean, Nurse Practitioner as directed. Dr. Jose MD I have performed a history and examination and MDM of this patient, discussed the same with the dictator, and agree with the dictator's assessment and plan as written ,documented as a scribe. Based on total visit time, I have performed more than 50% of the visit. Objective - Vital Signs Vital signs: Vital Signs Temp 97.6 F 03/25/23 07:10 Pulse 88 03/25/23 07:10 Resp 18 03/25/23 07:10 BP 145/72 03/25/23 07:10 Pulse Ox 95 03/25/23 07:10 FiO2 Intake & Output 03/24/23 03/25/23 03/25/23 18:59 06:59 18:59 Intake Total 590 Output Total 375 250 Balance -375 340 Intake: Other 590 Output: Urine 375 250 Other: Voiding Method External Catheter External Catheter # Voids 1 2 1 # Bowel Movements 1 - Labs CBC & Chem 7: 03/25/23 05:44 03/25/23 05:44 Labs: Abnormal Lab Results - Last 24 Hours (Table) 03/24/23 03/25/23 Range/Units 14:24 05:44 Anion Gap 12.50 H 13.50 H (4.00-12.00) mmol/L Glucose 120 H 113 H (70-110) mg/dL Total Bilirubin 1.5 H (0.3-1.2) mg/dL Vitamin D 25-Hydroxy 25.8 L (30.0-100.0) ng/mL
[2023-03-26] MEDS: PANTOPRAZOLE 40 MG TABLET PO SCH (09:26)
[2023-03-27] MEDS: KETOROLAC 15 MG/ML 1 ML VIAL IVP SCH ×4 (05:03→23:06)
--- NOTE | 2023-03-27 06:45 | P.PN ---
Subjective Progress Note Date: 03/26/23 Patient is a 73-year-old female with a past medical history of chronic low back pain, hypertension, GERD, anxiety and prior history of bilateral knee replacement presents to ER with complaints of low back pain and unable to ambulate. Patient usually walks with a walker. She has been having symptoms fo r the past 1 week after minor fall. She is currently living at [facility]. Patient was complaining of pain radiating down to her right lower extremity/leg. Denies any numbness or tingling. No bowel or bladder incontinence. Denies any head injury. No fever no chills. No cough or sputum production. No chest pain or shortness of breath. X-ray of the lumbar spine showed no radiographic evidence of acute lumbar compression fracture. Multilevel degenerative disc disease greatest at L5-S1 with bilateral L5 pars defects and grade 2 anterolisthesis L5-S1 similar to previous. Laboratory data showed sodium 134 potassium 3.4 chloride 99 bicarb is 24 BUN 16 and creatinine 0.67, blood sugar 103, bilirubin level 1.6 AST 37 ALT 38 and alk phos 87 and urinalysis is negative. Influenza A, B, RSV and COVID-19 PCR not detected. WBC 9.1 hemoglobin 13.7 platelets 298 03/25/2023 Patient is seen and evaluated and follow-up continues to have lower back pain and difficulty with walking. Prior to admission patient was ambulatory and currently living alone and has been having recurrent falls with progressive weakness to the lower extremities. Imaging done of the lumbar spine with no evidence of fractures or dislocation. Patient does have significant degenerative disc disease and morbid obesity with a body mass index of 51.8. Patient being evaluated by physical therapy recommending rehab. Patient would benefit from aggressive PT/OT therapy at an [facility] for strength and mobility as patient was independent prior to these falls. Patient currently afebrile with no reports of chest pain or shortness of breath. Patient reports the tolerating diet and denies any nausea or vomiting 03/26/2023 Patient is seen in follow-up today awaiting to work with physical therapy's patient continues with progressive weakness and difficulty with ambulating. No acute overnight issues noted. Patient remains afebrile with no reported chest pain or shortness of breath. Patient does have lower back pain requiring frequent position changes. Patient is tolerating diet with no reported nausea or vomiting. Patient requires 3 nights hospitalization for ECF according to Medicare guidelines. Review of systems: Constitutional: No reports of fatigue, fever, or chills Cardiovascular: No reports of chest pain or palpitations Respiratory: No reports of shortness of breath or cough GI: No reports of nausea, vomiting, or diarrhea : No reports of dysuria or retention Neurovascular: reports of generalized weakness and difficulty ambulating All medications have been reviewed PHYSICAL EXAMINATION: Patient is sitting up in the chair, no acute distress, awake alert and oriented. Morbidly obese. HEENT: Normocephalic. Neck is supple. Pupils reactive. Nostrils clear. Oral cavity is moist. Neck reveals no JVD, carotid bruits, or thyromegaly. CHEST EXAMINATION: Trachea is central. Symmetrical expansion. Lung villalpando clear to auscultation and percussion. CARDIAC: Normal S1, S2 with no gallops. No murmurs ABDOMEN: Soft. Bowel sounds present. Nontender. No organomegaly. No abdominal bruits. Extremities: reveal no edema. No clubbing or cyanosis Neurologically awake, alert, oriented x3. Patient is able to move all extremities while in bed. No gross focal deficits noted Skin: No rash or skin lesions. Psychiatric: Cooperative. Non-suicidal, Musculoskeletal: No joint swelling or deformity. Diffusely weak Assessment: Acute on chronic low back pain status post fall. Frequent falls over the last month with progressive weakness Multilevel degenerative disc disease greatest at L5-S1 with bilateral L5 pars defects and grade 2 anterolisthesis L5-S1 similar to previous study. Hypokalemia, being replaced Hypovolemic hyponatremia Mild transaminitis Hypertension GERD Morbid obesity BMI 51.8 Anxiety Prior history of bilateral knee replacement GI and DVT prophylaxis with heparin subcu and PPI Full code Plan: Patient will be continued on pain management with Toradol and Tylenol as needed. Blood pressure medications on hold. As patient was currently normotensive and will monitor closely and resume medications as appropriate PT/OT therapy evaluated the patient recommending rehab and patient is agreeable. Case management following working on insurance authorization as well as ECF According to Medicare guidelines, patient will require 3 nights hospitalization prior to discharge to ECF Encouraged increased activity as tolerated and recommended working with physical therapy daily Patient would benefit from ECF for more aggressive PT/OT therapy as patient has been having recurrent falls with progressive weakness of the lower extremities and was independent prior to these falls. Patient lives alone currently and feels is not a safe discharge to home. Strongly recommend ECF at this time. The impression and plan of care has been dictated by Stefanie Mclean, Nurse Practitioner as directed. Dr. Jose MD I have performed a history and examination and MDM of this patient, discussed the same with the dictator, and agree with the dictator's assessment and plan as written ,documented as a scribe. Based on total visit time, I have performed more than 50% of the visit. Objective - Vital Signs Vital signs: Vital Signs Temp 98.1 F 03/27/23 02:00 Pulse 90 03/27/23 02:00 Resp 16 03/27/23 02:00 BP 135/74 03/27/23 02:00 Pulse Ox 96 03/27/23 02:00 FiO2 Intake & Output 03/26/23 03/26/23 03/27/23 06:59 18:59 06:59 Intake Total 590 590 Output Total 300 Balance 290 590 Intake: Oral 590 590 Output: Urine 300 Other: Voiding Method Bedside Commode Bedside Commode Bedside Commode # Voids 3 2 3 # Bowel Movements 1 - Labs CBC & Chem 7: 03/25/23 05:44 03/25/23 05:44
[2023-03-27] MEDS: HEPARIN SODIUM,PORCINE 5,000 UNIT/ML 1 ML VIAL SQ SCH ×3 (10:03→23:06)
[2023-03-27] MEDS: CHOLECALCIFEROL 125 MCG (5000 IU) TABLET PO SCH (10:03)
[2023-03-27] MEDS: PANTOPRAZOLE 40 MG TABLET PO SCH (10:03)
[2023-03-28] MEDS: KETOROLAC 15 MG/ML 1 ML VIAL IVP SCH (05:05)
--- NOTE | 2023-03-28 06:18 | P.PN ---
Subjective Progress Note Date: 03/27/23 Patient is a 73-year-old female with a past medical history of chronic low back pain, hypertension, GERD, anxiety and prior history of bilateral knee replacement presents to ER with complaints of low back pain and unable to ambulate. Patient usually walks with a walker. She has been having symptoms fo r the past 1 week after minor fall. She is currently living at [facility] Patient was complaining of pain radiating down to her right lower extremity/leg. Denies any numbness or tingling. No bowel or bladder incontinence. Denies any head injury. No fever no chills. No cough or sputum production. No chest pain or shortness of breath. X-ray of the lumbar spine showed no radiographic evidence of acute lumbar compression fracture. Multilevel degenerative disc disease greatest at L5-S1 with bilateral L5 pars defects and grade 2 anterolisthesis L5-S1 similar to previous. Laboratory data showed sodium 134 potassium 3.4 chloride 99 bicarb is 24 BUN 16 and creatinine 0.67, blood sugar 103, bilirubin level 1.6 AST 37 ALT 38 and alk phos 87 and urinalysis is negative. Influenza A, B, RSV and COVID-19 PCR not detected. WBC 9.1 hemoglobin 13.7 platelets 298 03/25/2023 Patient is seen and evaluated and follow-up continues to have lower back pain and difficulty with walking. Prior to admission patient was ambulatory and currently living alone and has been having recurrent falls with progressive weakness to the lower extremities. Imaging done of the lumbar spine with no evidence of fractures or dislocation. Patient does have significant degenerative disc disease and morbid obesity with a body mass index of 51.8. Patient being evaluated by physical therapy recommending rehab. Patient would benefit from aggressive PT/OT therapy at an [facility] for strength and mobility as patient was independent prior to these falls. Patient currently afebrile with no reports of chest pain or shortness of breath. Patient reports the tolerating diet and denies any nausea or vomiting 03/26/2023 Patient is seen in follow-up today awaiting to work with physical therapy's patient continues with progressive weakness and difficulty with ambulating. No acute overnight issues noted. Patient remains afebrile with no reported chest pain or shortness of breath. Patient does have lower back pain requiring frequent position changes. Patient is tolerating diet with no reported nausea or vomiting. Patient requires 3 nights hospitalization for F according to Medicare guidelines. 03/27/2023 Patient is seen in follow-up this morning with no acute overnight issues noted. Patient requires a 3 night hospitalization according to Medicare guidelines to be able to go to ECF and has been approved for ECF and is scheduled for discharge on 03/28/2023. Patient has been encouraged to increase activity as tolerated. Patient currently reports no chest pain or shortness of breath. Patient is afebrile. Patient denies any nausea or vomiting and has been tolerating diet. Review of systems: Constitutional: No reports of fatigue, fever, or chills Cardiovascular: No reports of chest pain or palpitations Respiratory: No reports of shortness of breath or cough GI: No reports of nausea, vomiting, or diarrhea : No reports of dysuria or retention Neurovascular: reports of generalized weakness and difficulty ambulating All medications have been reviewed PHYSICAL EXAMINATION: Patient is sitting up in the chair, no acute distress, awake alert and oriented. Morbidly obese. HEENT: Normocephalic. Neck is supple. Pupils reactive. Nostrils clear. Oral cavity is moist. Neck reveals no JVD, carotid bruits, or thyromegaly. CHEST EXAMINATION: Trachea is central. Symmetrical expansion. Lung villalpando clear to auscultation and percussion. CARDIAC: Normal S1, S2 with no gallops. No murmurs ABDOMEN: Soft. Bowel sounds present. Nontender. No organomegaly. No abdominal bruits. Extremities: reveal no edema. No clubbing or cyanosis Neurologically awake, alert, oriented x3. Patient is able to move all extremities while in bed. No gross focal deficits noted Skin: No rash or skin lesions. Psychiatric: Cooperative. Non-suicidal, Musculoskeletal: No joint swelling or deformity. Diffusely weak Assessment: Acute on chronic low back pain status post fall. Frequent falls over the last month with progressive weakness Multilevel degenerative disc disease greatest at L5-S1 with bilateral L5 pars defects and grade 2 anterolisthesis L5-S1 similar to previous study. Hypokalemia, Improved Hypovolemic hyponatremia, improving Mild transaminitis Hypertension GERD Morbid obesity BMI 51.8 Anxiety Prior history of bilateral knee replacement GI and DVT prophylaxis with heparin subcu and PPI Full code Plan: Patient will be continued on pain management with Toradol and Tylenol as needed. PT/OT therapy evaluated the patient recommending rehab and patient is agreeable. Case management following working on ECF According to Medicare guidelines, patient will require 3 nights hospitalization prior to discharge to ECF. Patient has been accepted and will be able to discharge on 03/28/2023. Encouraged increased activity as tolerated and recommended working with physical therapy daily Patient would benefit from ECF for more aggressive PT/OT therapy as patient has been having recurrent falls with progressive weakness of the lower extremities and was independent prior to these falls. Patient lives alone currently and feels is not a safe discharge to home. Strongly recommend ECF at this time. discharge in 24 hours to ECF. The impression and plan of care has been dictated by Stefanie Mclean, Nurse Practitioner as directed. Dr. Jose MD I have performed a history and examination and MDM of this patient, discussed the same with the dictator, and agree with the dictator's assessment and plan as written ,documented as a scribe. Based on total visit time, I have performed more than 50% of the visit. Objective - Vital Signs Vital signs: Vital Signs Temp 97.9 F 03/28/23 02:00 Pulse 86 03/28/23 02:00 Resp 18 03/28/23 02:00 BP 155/88 03/28/23 02:00 Pulse Ox 93 L 03/28/23 02:00 FiO2 Intake & Output 03/27/23 03/27/23 03/28/23 06:59 18:59 06:59 Intake Total 590 Balance 590 Intake: Oral 590 Other: Voiding Method Bedside Commode Bedside Commode Bedside Commode # Voids 3 4 3 - Labs CBC & Chem 7: 03/25/23 05:44 03/25/23 05:44
[2023-03-28 07:56] VITALS: BP 191/74; PULSE 83; RESP 16; TEMP 97.4
[2023-03-28] MEDS ORDERED: lisinopriL 5 MG TAB PO SCH (09:00)
[2023-03-28] MEDS: PANTOPRAZOLE 40 MG TABLET PO SCH (09:22)
[2023-03-28] MEDS: HEPARIN SODIUM,PORCINE 5,000 UNIT/ML 1 ML VIAL SQ SCH (09:22)
[2023-03-28] MEDS: CHOLECALCIFEROL 125 MCG (5000 IU) TABLET PO SCH (09:22)
[2023-03-28] MEDS ORDERED: hydrALAZINE HCL 20 MG/ML 1 ML VIAL IVP STA (09:45)
[2023-03-28] MEDS ORDERED: hydroCHLOROthiazide 12.5 MG CAP PO SCH (09:45)
--- NOTE | 2023-03-28 10:01 | P.DS ---
Providers Date of admission: 03/25/23 09:54 Expected date of discharge: 03/28/23 Attending physician: Yang Hayes MD Primary care physician: Demetrio Tenorio Hospital Course: Final diagnosis Acute on chronic low back pain status post fall. Frequent falls over the last month with progressive weakness Multilevel degenerative disc disease greatest at L5-S1 with bilateral L5 pars defects and grade 2 anterolisthesis L5-S1 similar to previous study. Hypokalemia, Improved Hypovolemic hyponatremia, improving Mild transaminitis Hypertension GERD Morbid obesity BMI 51.8 Anxiety Prior history of bilateral knee replacement GI and DVT prophylaxis with heparin subcu and PPI Full code Discharge disposition Patient is being discharged in a stable condition with guarded prognosis to [facility]. Patient will follow-up with Dr. Tenorio in the outpatient setting upon discharge. Patient is to continue with PT/OT therapy for strength and mobility. Total time taken is greater than 35 minutes. Hospital course This is a 72-year-old female who was recently admitted with generalized weakness, recurrent falls and gait dysfunction being closely monitored. Patient evaluated by physical therapy recommending rehab and patient is agreeable. Patient required 3 night hospitalization according to Medicare guidelines and has been accepted at [facility] and will be going there for continued PT/OT therapy. Patient instructed to follow-up with primary care provider on discharge and has been cleared for discharge today. Currently no reports of chest pain, shortness of breath, or palpitations. Patient is afebrile. No reports of nausea or vomiting and patient is tolerating diet. Patient will be going to [facility] today. Physical exam: Gen: This is a 72-year-old female who is awake, alert and oriented 3, well-developed, well-nourished, morbidly obese HEENT: Head is atraumatic, normocephalic. Pupils equal, round. Sclerae is anicteric. NECK: Supple. No JVD. No lymphadenopathy. No thyromegaly. LUNGS: Clear to auscultation. No wheezes or rhonchi. No intercostal retractions. HEART: Regular rate and rhythm. No murmur. ABDOMEN: Soft. Obese Bowel sounds are present. No masses. No tenderness. EXTREMITIES: No pedal edema. No calf tenderness. Chronic lower extremity edema and large body habitus NEUROLOGICAL: Patient is awake, alert and oriented x3. Cranial nerves 2 through 12 are grossly intact. Diffusely weak Please refer to medication reconciliation sheet for a list of medications. The impression and plan of care has been dictated by Stefanie Mclean, Nurse Practitioner as directed. Dr. Jose MD I have performed a history and examination and MDM of this patient, discussed the same with the dictator, and agree with the dictator's assessment and plan as written ,documented as a scribe. Based on total visit time, I have performed more than 50% of the visit. Patient Condition at Discharge: Stable Plan - Discharge Summary Discharge Rx Participant: Yes New Discharge Prescriptions: New Heparin Sodium,Porcine (1 ml) [Heparin Sodium] 5,000 unit SQ Q8HR each traMADol HCl [Ultram] 50 mg PO Q8H PRN #6 tab PRN Reason: Pain Cholecalciferol [Vitamin D3 (125 Mcg = 5000 Iu)] 125 mcg PO DAILY tab Acetaminophen Tab [Tylenol] 500 mg PO Q6HR PRN tab PRN Reason: Fever And/ Or Pain Continue Lisinopril [Prinivil] 5 mg PO DAILY hydroCHLOROthiazide [Hydrodiuril] 12.5 mg PO DAILY Diclofenac Sodium [Voltaren] 50 mg PO BID Pantoprazole Sodium [Protonix] 40 mg PO DAILY Discharge Medication List Lisinopril [Prinivil] 5 mg PO DAILY 07/06/14 [History] hydroCHLOROthiazide [Hydrodiuril] 12.5 mg PO DAILY 07/06/14 [History] Diclofenac Sodium [Voltaren] 50 mg PO BID 03/23/23 [History] Pantoprazole Sodium [Protonix] 40 mg PO DAILY 03/23/23 [History] Acetaminophen Tab [Tylenol] 500 mg PO Q6HR PRN tab 03/28/23 [Rx] Cholecalciferol [Vitamin D3 (125 Mcg = 5000 Iu)] 125 mcg PO DAILY tab 03/28/23 [Rx] Heparin Sodium,Porcine (1 ml) [Heparin Sodium] 5,000 unit SQ Q8HR each 03/28/23 [Rx] traMADol HCl [Ultram] 50 mg PO Q8H PRN #6 tab 03/28/23 [Rx] Follow up Appointment(s)/Referral(s): Demetrio Tenorio MD [Primary Care Provider] - 1-2 days Activity/Diet/Wound Care/Special Instructions: Patient is going to [facility] as tolerated follow-up with primary care provider on discharge Discharge Disposition: TRANSFER TO SNF/ECF
== END 2023-03-28 11:30 | DRG 552 ==
LOC: EC 18:10 → 5NMEDONC 22:11 → OBSVTOIN 03-25 09:54
PROVIDERS: ADMIT Internal Medicine; ATTEND Internal Medicine
DX: M51.17 Intervertebral disc disorders with radiculopathy, lumbosacral region (principal); Z68.43 Body mass index [BMI] 50.0-59.9, adult; E87.1 Hypo-osmolality and hyponatremia; Z20.822 Contact with and (suspected) exposure to COVID-19; E66.01 Morbid (severe) obesity due to excess calories; F41.9 Anxiety disorder, unspecified; E86.1 Hypovolemia; E87.6 Hypokalemia; G89.29 Other chronic pain; W19.XXXA Unspecified fall, initial encounter; R74.01 Elevation of levels of liver transaminase levels; I10 Essential (primary) hypertension; K21.9 Gastro-esophageal reflux disease without esophagitis; M43.17 Spondylolisthesis, lumbosacral region; R29.6 Repeated falls; Z91.81 History of falling; Z96.653 Presence of artificial knee joint, bilateral; Z79.899 Other long term (current) drug therapy; Z90.710 Acquired absence of both cervix and uterus; Z90.49 Acquired absence of other specified parts of digestive tract
CPT/HCPCS: 36415; 51702; 72110; 80048; 80053; 81001; 82306; 84443; 85025; 87636; 96374; 99285